=== PATIENT | male | born 1960 | race African-American/Black ===

== ENCOUNTER 2019-08-04 12:02 | Inpatient (IN) ==
[2019-08-04] MEDS: ZOSYN 3.375 GM in NS 50 ML IV SCH ×2 (14:30→19:53)
--- NOTE | 2019-08-04 14:30 | Diag Imaging Result Doc PS360 ---
EXAM: CT ABD/PELVIS W/IV CONT ONLY 08/04/2019 HISTORY: Abdominal pain TECHNIQUE: This exam was performed using automated exposure control, adjustment of mA or kV according to patient size, and/or use of iterative reconstruction technique. COMMENT: There are no previous studies. There is some bullous emphysema particularly in the right middle lobe. The aorta is partially calcified. There is no evidence of aneurysm. The mesenteric and renal arteries are patent. There is an accessory right renal artery. There is no evidence of significant adenopathy or free fluid. The spleen, adrenal glands, pancreas, and liver are unremarkable. The kidneys are without evidence of hydronephrosis or mass. There is no evidence of bowel obstruction. The gallbladder is slightly distended and there is some pericholecystic fluid. There are small stones layering dependently in the gallbladder. Pelvis: The appendix is normal in appearance. The urinary bladder is slightly distended. There is some free fluid in the rectovesical pouch. There are no masses. There is no evidence of significant adenopathy. There is no evidence of acute disease in the visualized skeleton. IMPRESSION: Pericholecystic fluid and free fluid in the pelvis. Cholelithiasis. The possibility of acute cholecystitis cannot be excluded. The findings were discussed with Benson Desouza MD at 08/04/2019 2:28 PM. Electronically signed by Sundar Aguirre 08/04/2019 2:28 PM
[2019-08-04] MEDS ORDERED: FLU VACCINE IM ONE (15:37)
[2019-08-04 16:00] LABS: ALB/GLOB RATIO 1.2; ALBUMIN 4.6 g/dL (3.5-5.0); DIRECT BILIRUBIN 0.1 mg/dL (0.00-0.20); TOTAL BILIRUBIN 0.7 mg/dL (0.20-1.00); TOTAL PROTEIN 8.4 g/dL (6.3-8.3)
--- NOTE | 2019-08-04 17:45 | Diag Imaging Result Doc PS360 ---
EXAM: US ABDOMEN-COMPLETE - 08/04/2019 HISTORY: Abdominal pain TECHNIQUE: Ultrasound abdomen COMPARISON: 08/04/2019 CT abdomen/pelvis FINDINGS: There are a few sludge balls or nonshadowing gallstones in the gallbladder. There is no abnormal gallbladder wall thickening or pericholecystic fluid identified. The technologist reports negative sonographic Rodarte's sign. The common bile duct is normal caliber at 4.6 mm. Visualized portions of the pancreas are unremarkable. There are no substantial abnormalities of the liver or spleen identified. There is no ascites seen. There are no abnormalities of the bilateral kidneys identified. Visualized portions of abdominal aorta and IVC appear normal caliber. IMPRESSION: A few sludge balls or nonshadowing gallstones in the gallbladder. No abnormal gallbladder wall thickening or pericholecystic fluid identified. Normal caliber common bile duct at 4.6 mm. Electronically signed by Adi Ledbetter 08/04/2019 5:43 PM
[2019-08-04] MEDS ORDERED: MORPHINE IV PRN (17:54)
[2019-08-04] MEDS ORDERED: ZOFRAN IV PRN (17:55)
[2019-08-04] MEDS ORDERED: NS 1,000 ML IV SCH (18:45)
[2019-08-04] MEDS ORDERED: SODIUM CHLORIDE 0.9% INJ SCH (18:45)
[2019-08-04] MEDS ORDERED: PROTONIX IV SCH (19:00)
--- NOTE | 2019-08-04 19:28 | HISTORY AND PHYSICAL ---
SUBJECT: One-day history of lower abdominal pain. HISTORY OF PRESENT ILLNESS: He is a 58-year-old male who came to our office today with lower abdominal pain for the last 1 day. He was extremely tender with guarding. X- rays in my office showed emphysema, right middle lobe COPD changes, no bowel obstruction. No constipation noted. Further workup SMA-7 is normal. CBC showed white cell count 16,000. Clinical findings suspicious with Escherichia coli diverticulitis. Urinalysis is clear. And as a result, he has been admitted to the hospital for observation. CT scan abdomen and pelvis done and Dr. Aguirre notified. There is no appendicitis, diverticulitis, or free fluid in the pelvis, and he has some cholecystitis changes. However, patient did not have any pain upon eating. There is no Rodarte sign. Ultrasound of the abdomen showed positive gallstones. LFTs were normal. Amylase, lipase were normal. Findings were discussed with the family and will treat with IV fluids, IV Zosyn, clear liquids, and follow up on the clinical course. If he does well, will be discharged over the weekend. PAST MEDICAL HISTORY: Tobacco abuse since childhood, COPD, gout. PAST SURGICAL HISTORY: None. MEDICATIONS: None. ALLERGIES: Not known. SOCIAL HISTORY: He is single. No children. Smokes 1 pack a day since the age 15. Occasionally drinks alcohol. No drug abuse. FAMILY HISTORY: Notable for no cancers and strokes and congestive heart failure. REVIEW OF SYSTEMS: HEENT: No headache. No vision problem. No earache. No sore throat. Neck: No goiter. No lymphadenopathy. No bruit. Cardiopulmonary: No chest pain, shortness of breath, PND, orthopnea. GI: Lower abdominal pain. No constipation. No bleeding per rectum. : No history of hesitancy, frequency, dysuria. No claudication symptoms. No joint pain. Neurologic: No focal symptoms or weakness. EXAMINATION: Vitals: Afebrile. Vitals are stable. 6 feet tall, 148 pounds. HEENT: Atraumatic, normocephalic. Pupils equal, react to light. TMs are normal. Nose and throat within normal limits. Neck: Supple. No lymphadenopathy. No goiter. Chest: Bilateral air entry. Heart: Sounds are regular. Abdomen: Belly is soft. Tender in the left lower quadrant area. No signs of peritonitis. Slightly guarding. Rectal: Deferred. No signs of gangrene. Neurological: No obvious neurological deficits. INVESTIGATIONS: CBC: White cell count 16,000. SMA-7 is normal. LFTs were normal. CT scan of the abdomen and pelvis reported pericholecystic fluid and free fluid in the pelvis. Cholelithiasis. Abdominal ultrasound a few sludge balls, nonshadowing stones in the gallbladder, normal common bile duct. ASSESSMENT AND PLAN: A 58-year-old male admitted to the hospital with left lower quadrant pain, elevated white cell count 16,000. CT findings reassuring. 1. Plan is bladder scan to check the postvoid residual urine. 2. Gentle IV fluids, clear liquids. 3. IV antibiotics with Zosyn. 4. Repeat the CBC, BMP in the morning. 5. Zofran for nausea and also will give Nexium and if he does well over the weekend, we will discharge and follow up as an outpatient. cc: Tobias Desouza MD
[2019-08-04] MEDS: TORADOL IV PRN (19:50)
[2019-08-05] MEDS: ZOSYN 3.375 GM in NS 50 ML IV SCH ×3 (02:14→14:32)
[2019-08-05] MEDS: TORADOL IV PRN (07:04)
[2019-08-05 07:08] LABS: BASO# 0.03 X1000 (0.0-0.2); BASO% 0.2 % (0.0-0.8); EOS# 0.13 X1000 (0.0-0.7); HEMOGLOBIN 13.5 g/dL (14.0-18.0); IMM GRAN# 0.03 X1000 (0.0-0.04); IMM GRAN% 0.2 % (0.0-0.5); LYMPH# 2.51 X1000 (1.2-3.4); LYMPH% 19.9 % (20.5-51.1); MCHC 33.8 g/dL (33-37); MCV 88.9 FL (81-99); MONO# 1.43 X1000 (0.11-0.59); MONO% 11.4 % (1.7-9.3); MPV 10.3 FL (7.4-10.4); NEUT# 8.46 X1000 (1.4-6.5); NEUT% 67.3 % (42.2-75.2); PLT 323 X1000 (130-400); RDW 11.4 % (11.5-14.5); WBC 12.59 X1000 (4.8-10.8)
[2019-08-05 07:30] LABS: AGAP 13; BUN 5 mg/dL (8-22); CALCIUM 8.9 mg/dL (8.8-10.2); CHLORIDE 104 mmol/L (98-107); COSMO 278; CREATININE 0.7 mg/dL (0.7-1.2); ESTIMATED GFR > 60; GLUCOSE 95 mg/dL (70-104); POTASSIUM 4.2 mmol/L (3.5-5.1); SODIUM 141 mmol/L (136-145); TCO2 24 mmol/L (25-35)
[2019-08-05 15:11] VITALS: BP 140/65
--- NOTE | 2019-08-05 21:25 | DISCHARGE SUMMARY ---
ADMISSION DATE: 08/04/2019 DISCHARGE DATE: 08/05/2019 DISCHARGE DIAGNOSIS: 1. Left lower quadrant abdominal pain with leukocytosis. 2. Possible peptic ulcer disease. HOSPITAL COURSE: Mr. Rivera is a 58-year-old gentleman who was admitted to the hospital through the office by Dr. Desouza with extreme abdominal pain. He was initially thought to have acute diverticulitis, but CT scan of the abdomen and pelvis ruled out that. There was some cholelithiasis with pericholecystic fluid and free fluid in the pelvis, but no other findings were noted. Abdominal ultrasound showed a few sludge balls or nonshadowing gallstones in the gallbladder, but no abnormal gallbladder wall thickening or pericholecystic fluid was identified. Common bile duct was of normal caliber. Today patient has been asymptomatic and his abdomen is completely benign with no tenderness and normal bowel sounds. Would therefore discharge him home today. I have recommended him to discontinue NSAIDs, however, because of the possibility of peptic ulcer disease. DISCHARGE MEDICATIONS: 1. Ciprofloxacin 500 mg orally twice daily for 5 days. 2. Pantoprazole 40 mg orally once daily. FOLLOW-UP: He will follow up with Dr. Desouza as outpatient in one week. CONDITION: Stable. DISPOSITION: Home. cc: MD Tobias Culp MD
== END 2019-08-05 16:41 | disposition home or self-care (01) | DRG 392 ==
LOC: DIRADM 12:02 → EDIPHOLD 12:35 → 4N 15:29
PROVIDERS: ADMIT Internal Medicine; ATTEND Internal Medicine